=== PATIENT | female | born 1995 | race Caucasian/White ===

== ENCOUNTER 2022-10-19 14:57 | Emergency (ER) | payer OTHER ==
[2022-10-19 15:11] VITALS: BP 136/77; PULSE 98; RESP 17; TEMP 98.2; BMI 28.3
[2022-10-19] MEDS ORDERED: ACETAMINOPHEN 500 MG TABLET (FP) PO ONE (15:19)
[2022-10-19] MEDS ORDERED: ACETAMINOPHEN 500 MG TABLET (FP) ONE (15:21)
== END 2022-10-19 15:38 | disposition home or self-care (01) ==
LOC: JERFT 14:57
DX: S93.401A Sprain of unspecified ligament of right ankle, initial encounter (principal); W11.XXXA Fall on and from ladder, initial encounter
CPT/HCPCS: 99283-25